=== PATIENT | female | born 1995 | race Caucasian/White ===

== ENCOUNTER 2017-01-24 15:53 | Emergency (ER) | payer OTHER ==
[2017-01-24 15:59] VITALS: BP 148/68
--- NOTE | 2017-01-24 17:11 | ER Document Report ---
HPI - HPI Onset: Other Onset/Duration: Gradual, Worse Quality of pain: Throbbing Severity: Moderate Pain Level: 3 Context: Patient states she has been having left foot pain which is increasing in intensity for the last 3 weeks. 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 The infection extended from a cut that she had on her left lower leg at that time. Patient currently has a small cut to the back of her left leg which she incurred while shaving. Denies known injury. Associated Symptoms: None Exacerbated by: Other - certain movements Relieved by: Remaining still Similar symptoms previously: Yes Recently seen / treated by doctor: No - ROS ROS below otherwise negative: Yes Systems Reviewed and Negative: Yes All other systems reviewed and negative - CONSTITUTIONAL Constitutional: DENIES: Fever - EENT EENT: DENIES: Congestion - NEURO Neurology: DENIES: Headache - CARDIOVASCULAR Cardiovascular: DENIES: Chest pain - RESPIRATORY Respiratory: DENIES: Trouble Breathing - GASTROINTESTINAL Gastrointestinal: DENIES: Abdominal Pain - MUSCULOSKELETAL Musculoskeletal: REPORTS: Extremity pain - Left foot - DERM Skin Color: Normal Past Medical History - General Information source: Patient - Social History Smoking Status: Never Smoker Frequency of alcohol use: None Drug Abuse: None Lives with: Spouse/Significant other Family History: Reviewed & Not Pertinent Neurological Medical History: Reports: Hx Migraine Past Surgical History: Reports: Hx Orthopedic Surgery Vertical Provider Document - CONSTITUTIONAL Agree With Documented VS: Yes Exam Limitations: No Limitations General Appearance: WD/WN, No Apparent Distress - INFECTION CONTROL TRAVEL OUTSIDE OF THE [place] IN LAST 30 DAYS: No - HEENT HEENT: Atraumatic, Normocephalic - RESPIRATORY Respiratory: Breath Sounds Normal, No Respiratory Distress O2 Sat by Pulse Oximetry: 98 - CARDIOVASCULAR Cardiovascular: Regular Rate, Regular Rhythm - MUSCULOSKELETAL/EXTREMETIES Musculoskeletal/Extremeties: MAEW, No Edema. negative: Eccymosis Notes: Pain reproduced to left foot between fourth and fifth toes with deep palpation. There is no warmth, no edema or swelling. Neurovascular and sensation is intact - NEURO Level of Consciousness: Awake, Alert, Appropriate - DERM Integumentary: Warm, Dry Notes: Patient does have a small scabbed cut to posterior left lower leg without signs and symptoms of infection noted. Course - Vital Signs Vital signs: Temp Pulse Resp BP Pulse Ox 99.4 F 98 H 20 148/68 H 98 01/24/17 15:57 01/24/17 15:57 01/24/17 15:57 01/24/17 15:57 01/24/17 15:57 - Laboratory Result Diagrams: 01/24/17 18:10 01/24/17 18:10 Discharge - Discharge Clinical Impression: Left foot pain Condition: Good Disposition: HOME, SELF-CARE Additional Instructions: ibuprofen as needed for pain wear more supportive shoes, not flip flops to see if helps alleviate pain follow up with your doctor if not better one week, all labs and xrays were normal today return as needed Prescriptions: Ibuprofen 600 mg PO PRN PRN #20 tablet PRN Reason:
--- NOTE | 2017-01-24 18:09 | RADIOLOGY REPORT (SQ) ---
EXAM DESCRIPTION: FOOT LEFT COMPLETE COMPLETED DATE/TIME: 01/24/2017 6:00 pm REASON FOR STUDY: pain SHIELD PT COMPARISON: None. NUMBER OF VIEWS: Three views. TECHNIQUE: AP, lateral and oblique radiographic images acquired of the left foot. LIMITATIONS: None. FINDINGS: MINERALIZATION: Normal. BONES: No acute fracture or dislocation. No worrisome bone lesions. JOINTS: No effusions. SOFT TISSUES: No soft tissue swelling. No foreign body. OTHER: No other significant finding. IMPRESSION: NEGATIVE STUDY OF THE LEFT FOOT. NO RADIOGRAPHIC EVIDENCE OF ACUTE INJURY. TECHNICAL DOCUMENTATION: JOB ID: [id number] [employer]- All Rights Reserved
[2017-01-24 18:25] LABS: ABSOLUTE BASOPHILS # (AUTO) 0.1 10^3/uL (0.0-0.2); ABSOLUTE EOSINOPHILS # (AUTO) 0.1 10^3/uL (0.0-0.6); ABSOLUTE MONOCYTES (AUTO) 0.4 10^3/uL (0.1-1.4); ABSOLUTE NEUT (AUTO) 5.1 10^3/uL (1.7-8.2); BASOPHILS % (AUTO) 0.8 % (0-2); EOSINOPHILS % (AUTO) 1.4 % (0-6); HEMOGLOBIN 14.1 g/dL (12.0-15.5); HGB HCT DIFFERENCE 2.3; LYMPHOCYTES % (AUTO) 25.9 % (13-45); MEAN CORPUSCULAR HEMOGLOBIN 30.7 pg (27.0-33.4); MEAN CORPUSCULAR HGB CONC 35.4 g/dL (32.0-36.0); MEAN CORPUSCULAR VOLUME 87 fl (80-97); MONOCYTES % (AUTO) 5.2 % (3-13); RED BLOOD COUNT 4.61 10^6/uL (3.72-5.28); RED CELL DISTRIBUTION WIDTH 12.6 % (11.5-14.0); SEGMENTED NEUTROPHILS % (AUTO) 66.7 % (42-78); WHITE BLOOD COUNT 7.6 10^3/uL (4.0-10.5)
[2017-01-24 18:42] LABS: ALANINE AMINOTRANSFERASE 32 U/L (5-35); ALBUMIN 4.7 g/dL (3.7-5.6); ALKALINE PHOSPHATASE 68 U/L (50-135); ANION GAP 12 (5-19); ASPARTATE AMINO TRANSFERASE 21 U/L (5-30); BILIRUBIN,DIRECT 0.4 mg/dL (0.0-0.4); BILIRUBIN,TOTAL 0.6 mg/dL (0.2-1.3); BLOOD UREA NITROGEN 11 mg/dL (7-20); CARBON DIOXIDE 23 mmol/L (22-30); CHLORIDE 107 mmol/L (98-107); GLUCOSE 85 mg/dL (75-110); POTASSIUM 4.1 mmol/L (3.6-5.0); SODIUM 142.2 mmol/L (137-145); TOTAL PROTEIN 7.3 g/dL (6.3-8.2)
== END 2017-01-24 19:15 | disposition home or self-care (01) ==
LOC: ER 15:53
DX: M79.672 Pain in left foot (principal); S81.812A Laceration without foreign body, left lower leg, initial encounter; Z86.14 Personal history of Methicillin resistant Staphylococcus aureus infection; X58.XXXA Exposure to other specified factors, initial encounter
CPT/HCPCS: 36415; 80053; 84702; 85025; 99283

== ENCOUNTER 2017-01-25 01:06 | Emergency (ER) | payer OTHER ==
[2017-01-25 01:28] VITALS: BP 125/81
[2017-01-25] MEDS ORDERED: DIPH/PERTUSS(ACELL)/TETANUS VAC/PF 0.5 ML SYR (>=10YO) IM ONE (02:24)
[2017-01-25] MEDS ORDERED: IBUPROFEN 600 MG TABLET PO ONE (02:24)
--- NOTE | 2017-01-25 02:26 | ER Document Report ---
ED General - General Chief Complaint: Laceration Stated Complaint: FINGER LACERATION Time Seen by Provider: 01/25/17 02:06 Notes: Patient is a 21-year-old female without past medical history, not up-to-date on her tetanus immunization who presents after sustaining a laceration to her left third digit. She states this occurred after she was trying to carve the eyes out of a stuffed bear that is approximately 6 feet tall that she was going to use as a Halloween costume. She was using a hunting knife to do so and unfortunately did graze across the top of the left middle finger. She did sustain a skin avulsion to the area. No additional injuries were sustained. She does note a mild, burning, constant pain to the area. Touching area worsens the pain. She has not tried anything to improve the pain. Bleeding was controlled with direct pressure. No history of similar injuries in the past. TRAVEL OUTSIDE OF THE [place] IN LAST 30 DAYS: No - Related Data Allergies/Adverse Reactions: Sulfa (Sulfonamide Antibiotics) Allergy (Verified 01/24/17 15:57) Past Medical History - General Information source: Patient - Social History Smoking Status: Never Smoker Frequency of alcohol use: None Drug Abuse: None Lives with: Family Family History: Reviewed & Not Pertinent Neurological Medical History: Reports: Hx Migraine Renal/ Medical History: Denies: Hx Peritoneal Dialysis Past Surgical History: Reports: Hx Orthopedic Surgery - Immunizations Hx Diphtheria, Pertussis, Tetanus Vaccination: Yes Review of Systems - Review of Systems Notes: Constitutional: Negative for fever. Eyes: Negative for visual changes. ENT: Negative for facial injury Cardiovascular: Negative for chest injury. Respiratory: Negative for shortness of breath. Gastrointestinal: Negative for abdominal injury. Genitourinary: Negative for genital injury Musculoskeletal: Negative for back injury. Skin: Positive for laceration/abrasions. Neurological: Negative for head injury. Physical Exam - Vital signs Vitals: Temp Pulse Resp BP Pulse Ox 98.7 F 93 H 18 125/81 100 01/25/17 01:25 01/25/17 01:25 01/25/17 01:25 01/25/17 01:25 01/25/17 01:25 Interpretation: Normal Notes: PHYSICAL EXAMINATION: GENERAL: Well-appearing, well-nourished and in no acute distress. HEAD: Atraumatic, normocephalic. EYES: sclera anicteric, conjunctiva are normal. ENT: Moist mucous membranes. NECK: Normal range of motion LUNGS: Normal work of breathing HEART: 2+ radial pulses bilaterally EXTREMITIES: no pitting or edema. No cyanosis. Full flexion extension of the DIP, MCP and PIP against resistance of the left third digit NEUROLOGICAL: No focal neurological deficits. Moves all extremities spontaneously and on command. PSYCH: Normal mood, normal affect. SKIN: Warm, Dry, normal turgor, there is a circular area of skin avulsion over the PIP of the left third digit with exposure of the underlying tendon. Course - Re-evaluation Re-evalutation: 01/25/17 02:24 Patient presents with a skin avulsion over the dorsal PIP of the left third digit with exposure of the underlying tendon. Patient has full flexion extension of the DIP, MCP and PIP against resistance. The wound was irrigated and dressed. There is no tissue to perform a repair. This will heal by secondary intention. No indication for antibiotic prophylaxis. Patient did have her tetanus updated here in the emergency department. At this time will discharge with return precautions and follow-up recommendations. Verbal discharge instructions given a the bedside and opportunity for questions given. Medication warnings reviewed. Patient is in agreement with this plan and has verbalized understanding of return precautions and the need for primary care follow-up in the next 24-72 hours. - Vital Signs Vital signs: Temp Pulse Resp BP Pulse Ox 98.7 F 93 H 18 125/81 100 01/25/17 01:25 01/25/17 01:25 01/25/17 01:25 01/25/17 01:25 01/25/17 01:25 Discharge - Discharge Clinical Impression: Laceration of left middle finger Qualifiers: Encounter type: initial encounter Damage to nail status: without damage Foreign body presence: without foreign body Qualified Code(s): S61.213A - Laceration without foreign body of left middle finger without damage to nail, initial encounter Condition: Good Disposition: HOME, SELF-CARE Additional Instructions: Return immediately if you develop spreading redness around the wound, pus from the wound, worsening pain, or a fever of >100.4. Keep the area clean and dry. Wash gently with soap and water twice daily and cover with antibiotic ointment.
== END 2017-01-25 03:00 | disposition home or self-care (01) ==
LOC: ER 01:06
DX: S61.213A Laceration without foreign body of left middle finger without damage to nail, initial encounter (principal); W26.0XXA Contact with knife, initial encounter; Y93.89 Activity, other specified; Z23 Encounter for immunization; Z88.2 Allergy status to sulfonamides
CPT/HCPCS: 90471; 90715; 99282

== ENCOUNTER 2018-05-16 15:01 | Emergency (ER) | payer OTHER ==
[2018-05-16 15:10] VITALS: BP 126/62
--- NOTE | 2018-05-16 15:18 | ER Document Report ---
ED Medical Screen (RME) - General Chief Complaint: Lower Abdominal Pain Stated Complaint: ABDOMINAL PAIN Time Seen by Provider: 05/16/18 15:12 Mode of Arrival: Ambulatory Information source: Patient Notes: 23-year-old female who is 17 weeks presents emergency department with a 6-day history of right upper and lower quadrant abdominal pain. Patient states that it feels like she is getting "punched a lot". She states that it has been constant over the last 6 days but has had intermittent fluctuations were became worse. No known exacerbating factors. No alleviating factors. Patient states that she took Tylenol yesterday without relief of symptoms. She denies any nausea, vomiting, diarrhea, constipation, dysuria, hematuria, vaginal bleeding, fever. Patient has been following up with her P[employer] MECH[employer]IC. She states this had blood work done last week. She is not been contacted about the results yet. I have greeted and performed a rapid initial assessment of this patient. A c omprehensive ED assessment and evaluation of the patient, analysis of test results and completion of the medical decision making process will be conducted by additional ED providers. PHYSICAL EXAMINATION: GENERAL: Well-appearing, well-nourished and in no acute distress. HEAD: Atraumatic, normocephalic. EYES: Pupils equal round extraocular movements intact, conjunctiva are normal. ENT: Nares patent NECK: Normal range of motion LUNGS: No respiratory distress Musculoskeletal: Normal range of motion NEUROLOGICAL: Normal speech, normal gait. TRAVEL OUTSIDE OF THE [place] IN LAST 30 DAYS: No - Related Data Allergies/Adverse Reactions: Sulfa (Sulfonamide Antibiotics) Allergy (Verified 05/16/18 15:11) Past Medical History Neurological Medical History: Reports: Hx Migraine Renal/ Medical History: Denies: Hx Peritoneal Dialysis Past Surgical History: Reports: Hx Orthopedic Surgery - Immunizations Hx Diphtheria, Pertussis, Tetanus Vaccination: Yes Physical Exam - Vital signs Vitals: Temp Pulse Resp BP Pulse Ox 99.1 F 80 16 126/62 H 98 05/16/18 15:05/16/18 15:05/16/18 15:05/16/18 15:05/16/18 15:09 Course - Vital Signs Vital signs: Temp Pulse Resp BP Pulse Ox 99.1 F 80 16 126/62 H 98 05/16/18 15:05/16/18 15:09 05/16/18 15:09 05/16/18 15:09 05/16/18 15:09
[2018-05-16 15:45] LABS: ABSOLUTE EOSINOPHILS # (AUTO) 0.1 10^3/uL (0.0-0.6); ABSOLUTE LYMPHOCYTES (AUTO) 1.9 10^3/uL (0.5-4.7); ABSOLUTE MONOCYTES (AUTO) 0.5 10^3/uL (0.1-1.4); BASOPHILS % (AUTO) 0.2 % (0-2); EOSINOPHILS % (AUTO) 0.8 % (0-6); HEMATOCRIT 38.5 % (36.0-47.0); HEMOGLOBIN 13.6 g/dL (12.0-15.5); LYMPHOCYTES % (AUTO) 16.3 % (13-45); MEAN CORPUSCULAR HEMOGLOBIN 32.1 pg (27.0-33.4); MEAN CORPUSCULAR HGB CONC 35.4 g/dL (32.0-36.0); MEAN CORPUSCULAR VOLUME 91 fl (80-97); PLATELET COUNT 193 10^3/uL (150-450); RED BLOOD COUNT 4.24 10^6/uL (3.72-5.28); RED CELL DISTRIBUTION WIDTH 12.3 % (11.5-14.0); SEGMENTED NEUTROPHILS % (AUTO) 78.7 % (42-78); TOTAL CELLS COUNTED % (AUTO) 100 %; WHITE BLOOD COUNT 11.5 10^3/uL (4.0-10.5)
[2018-05-16 15:48] LABS: APPEARANCE,URINE CLOUDY; BILIRUBIN,URINE NEGATIVE (NEGATIVE); COLOR,URINE AMBER; GLUCOSE, URINE NEGATIVE (NEGATIVE); KETONES,URINE 20 mg/dL (NEGATIVE); LEUKOCYTE ESTERASE,URINE TRACE (NEGATIVE); NITRITE,URINE NEGATIVE (NEGATIVE); PROTEIN,URINE NEGATIVE (NEGATIVE); URINE SPECIFIC GRAVITY 1.027; UROBILINOGEN,URINE NEGATIVE mg/dL (<2.0)
[2018-05-16 16:04] LABS: ALANINE AMINOTRANSFERASE 20 U/L (9-52); ALBUMIN 4.3 g/dL (3.5-5.0); ALKALINE PHOSPHATASE 58 U/L (38-126); ANION GAP 10 (5-19); ASPARTATE AMINO TRANSFERASE 15 U/L (14-36); BILIRUBIN,DIRECT 0.1 mg/dL (0.0-0.4); BILIRUBIN,TOTAL 0.5 mg/dL (0.2-1.3); BLOOD UREA NITROGEN 6 mg/dL (7-20); CALCIUM 9.7 mg/dL (8.4-10.2); CARBON DIOXIDE 23 mmol/L (22-30); CHLORIDE 105 mmol/L (98-107); GLUCOSE 111 mg/dL (75-110); POTASSIUM 3.9 mmol/L (3.6-5.0); SODIUM 138.2 mmol/L (137-145); TOTAL PROTEIN 6.7 g/dL (6.3-8.2)
[2018-05-16] MEDS ORDERED: NORMAL SALINE 1000 ML 1,000 ML IV ONE (16:26)
[2018-05-16] MEDS ORDERED: METOCLOPRAMIDE HCL INJ/PF 10 MG/2 ML SDV IV ONE (16:26)
--- NOTE | 2018-05-16 16:26 | ER Document Report ---
ED General - General Chief Complaint: Lower Abdominal Pain Stated Complaint: ABDOMINAL PAIN Time Seen by Provider: 05/16/18 15:12 Mode of Arrival: Ambulatory TRAVEL OUTSIDE OF THE [place] IN LAST 30 DAYS: No - HPI Patient complains to provider of: Abdominal pain, 17-week gestation, nausea and vomiting Onset: Other - 6 days ago Onset/Duration: Gradual, Worse Quality of pain: Cramping, Sharp Severity: Severe Context: Primigravida 17 weeks gestation Associated symptoms: Chills. denies: Fever Exacerbated by: Denies Relieved by: Denies Similar symptoms previously: No Recently seen / treated by doctor: Yes Notes: 23-year-old female coming in today with pelvic, right lower quadrant, right upper quadrant abdominal pain for almost a week. 6 days ago she saw her workers compensation claims examiner who pressed on her abdomen and ordered some lab work because she was complaining of pelvic and right upper quadrant and right lower quadrant pain. Apparently her OB ordered some lab work but did not order any other st udies. Nobody called the patient to touch base with her about the results of the labs. Patient continues to have the same symptoms and that is what brings her in today to be evaluated. - Related Data Allergies/Adverse Reactions: Sulfa (Sulfonamide Antibiotics) Allergy (Verified 05/16/18 15:11) Past Medical History - General Information source: Patient - Social History Smoking Status: Never Smoker Chew tobacco use (# tins/day): No Frequency of alcohol use: None Drug Abuse: None Family History: Reviewed & Not Pertinent Patient has suicidal ideation: No Patient has homicidal ideation: No Neurological Medical History: Reports: Hx Migraine Renal/ Medical History: Denies: Hx Peritoneal Dialysis Past Surgical History: Reports: Hx Orthopedic Surgery - Immunizations Hx Diphtheria, Pertussis, Tetanus Vaccination: Yes Review of Systems - Review of Systems Notes: Constitutional: No fevers, but chills. EENT: Atraumatic Cardiovascular: No chest pain. No palpitations. Respiratory: No cough. No shortness of breath. No respiratory distress. Gastrointestinal: No nausea, vomiting, or diarrhea. Tenderness in the right upper quadrant and right lower quadrant Genitourinary: Atraumatic. No lesions. No pain. No discharge. No vaginal bleeding. Positive for pelvic pain Musculoskeletal: Atraumatic. No swelling. No deformities. Skin: No rash or lesions. Lymphatic: No swollen lymph nodes. Neurologic: No headache. No syncope. Psychiatric: No suicidal or homicidal ideation. Physical Exam - Vital signs Vitals: Temp Pulse Resp BP Pulse Ox 99.1 F 80 16 126/62 H 98 05/16/18 15:09 05/16/18 15:09 05/16/18 15:09 05/16/18 15:09 05/16/18 15:09 - Notes Notes: General: Well-developed, well-nourished. In no acute distress. Non-toxic appearing. Cardiac: Well-perfused. Regular rate and rhythm. No murmurs, rubs, or gallops. Pulmonary: No respiratory distress. No cyanosis. Bilateral lung fiels are clear to auscultation. Abdominal: Non-distended. Non-rigid. Bowel sounds are present in all 4 quadrants. There is guarding and no rebound when palpating the right upper and right lower quadrants. There is diffuse tenderness to palpation across the lower abdomen. HEENT: Head is atraumatic. Conjunctivae not reddened. No tearing. PERRL. EOMI. Orbits atraumatic. No periorbital swelling or erythema. Oropharynx is without erythema, swelling, or exudates. Neck: Supple. No adenopathy. No meningismus. Dermatologic: Warm with good turgor. No rash. Atraumatic. Chest: Atraumatic. No chest wall tenderness to palpation. Musculoskeletal: Moves all extremities well. No range of motion deficits. no muscular or joint tenderness. No paraspinal muscle tenderness. no midline spinal tenderness or step-off. Genitourinary: Examination deferred Neurologic: No gross neurologic deficits. Psychiatric: Normal mood. Course - Re-evaluation Re-evalutation: 05/16/18 16:25 Differential diagnosis is pretty vast. Patient does appear to have quite tender abdomen in the right upper and right lower quadrants. We will get labs and ultrasounds of all areas of concern and see where to go from there. 05/16/18 19:50 Patient's workup is complete. Ultrasounds of the gallbladder appendix and OB assessment were all negative. Patient continues to have some discomfort and vomiting. She admits that she has had vomiting similar to this throughout her . Her urinalysis is positive for UTI. Because of her and right lower quadrant tenderness, I had the general surgeon come and assess her abdomen. Although the patient's history was not a typical appendix presentation, he suggested that we do the MRI scan to absolutely definitively rule out appendicitis. After getting the MRI team to stay around the patient finally decided she did not want to stick around to have the procedure done. I told her that I could not definitively rule out appendicitis without it and therefore she would need to leave AGAINST MEDICAL ADVICE. She is awake alert and oriented. Toyin Coma Scale 15 out of 15. Able to make the decision to leave AGAINST MEDICAL ADVICE. Appropriate paperwork was signed. I will write a prescription for antibiotics for UTI. If she is worse she knows that she is welcome to return to the ED for further evaluation. Hopefully, she will be able to secure prompt 24-48-hour follow-up with her workers compensation claims examiner. - Vital Signs Vital signs: Temp Pulse Resp BP Pulse Ox 99.1 F 80 16 126/62 H 98 05/16/18 15:09 05/16/18 15:09 05/16/18 15:09 05/16/18 15:09 05/16/18 15:09 - Laboratory Result Diagrams: 05/16/18 15:22 05/16/18 15:22 Laboratory results interpreted by me: 05/16/18 05/16/18 05/16/18 15:22 15:22 15:22 WBC 11.5 H Seg Neutrophils % 78.7 H Absolute Neutrophils 9.0 H BUN 6 L Creatinine 0.44 L Glucose 111 H Urine Ketones 20 H Ur Leukocyte Esterase TRACE H - Diagnostic Test Radiology reviewed: Reports reviewed Discharge - Discharge Clinical Impression: Abdominal pain affecting , Nausea and vomiting during , Left against medical advice Disposition: AGAINST MEDICAL ADVICE Instructions: Abdominal Pain ([facility]), Recurring Abdominal Pain, Child ([facility]), Vomiting ([facility]), Intravenous (IV) Fluids ([facility]) Prescriptions: Metoclopramide HCl [Reglan 10 mg Tablet] 1 tab PO Q6HP PRN #20 tablet PRN Reason: Cephalexin Monohydrate [Keflex 500 mg Capsule] 500 mg PO Q6H 10 Days #40 capsule Referrals: OB,YOUR [Other] - Follow up tomorrow
[2018-05-16] MEDS ORDERED: MORPHINE SULFATE 10 MG/ML INJ IV ONE (16:27)
--- NOTE | 2018-05-16 18:01 | RADIOLOGY REPORT (SQ) ---
EXAM DESCRIPTION: U/S ABDOMEN LIMITED W/O DOP COMPLETED DATE/TIME: 05/16/2018 5:31 pm REASON FOR STUDY: right lower quad pain in COMPARISON: None. TECHNIQUE: Static and real time farmer scale imaging performed of the right lower quadrant with additi onal compression maneuvers. LIMITATIONS: None. FINDINGS: APPENDIX: Not visualized. BOWEL: Active peristalsis with fluid in the bowel. COMPRESSION MANEUVERS: No rebound pain with compression. OTHER: No other significant finding. IMPRESSION: APPENDIX NOT IDENTIFIED. ACTIVE PERISTALSIS. TECHNICAL DOCUMENTATION: JOB ID: [id number] 2010 [employer]- All Rights Reserved Reading location - IP/workstation name: [email or web address]
--- NOTE | 2018-05-16 18:08 | RADIOLOGY REPORT (SQ) ---
EXAM DESCRIPTION: U/S ABDOMEN LIMITED W/O DOP COMPLETED DATE/TIME: 05/16/2018 5:30 pm REASON FOR STUDY: ruq tenderness in patient COMPARISON: None. TECHNIQUE: Dynamic and static grayscale images acquired of the abdomen and recorded on PACS. Additio nal selected color Doppler and spectral images recorded. LIMITATIONS: None. FINDINGS: PANCREAS: Normal. LIVER: The liver measures 12.4 cm demonstrating normal echogenicity. LIVER VASCULATURE: Normal directional flow of the main portal vein and hepatic veins. GALLBLADDER: The gallbladder is normal. The gallbladder wall measures 1.3 mm. . ULTRASOUND-DETECTED LOREDO'S SIGN: Negative. INTRAHEPATIC DUCTS AND COMMON DUCT: CBD is normal measuring 4.5 mm. Intrahepatic ducts normal calibe r. No filling defects. INFERIOR VENA CAVA: Normal flow. AORTA: The upper abdominal aorta measures 1.4 cm in AP diameter. The mid abdominal aorta measures 1 .1 cm in AP diameter and distally 0.9 cm. RIGHT KIDNEY: Right kidney is normal in size measuring 10.4 cm. There is no evidence of hydronephro sis. Normal Doppler flow. IMPRESSION: NORMAL RIGHT UPPER QUADRANT ULTRASOUND. TECHNICAL DOCUMENTATION: JOB ID: [id number] 2010 [employer]- All Rights Reserved Reading location - IP/workstation name: [email or web address]
--- NOTE | 2018-05-16 18:23 | RADIOLOGY REPORT (SQ) ---
EXAM DESCRIPTION: U/S OB 14+ TA/1 GEST W/DOPPLER COMPLETED DATE/TIME: 05/16/2018 5:36 pm REASON FOR STUDY: severe pelvic pain in COMPARISON: None. TECHNIQUE: Static and Dynamic grayscale imaging performed of gravid uterus using transabdominal appr oach. Additional selected color Doppler and spectral images recorded. All stored on PACS. LIMITATIONS: None. FINDINGS: FETUSES SEEN:1 EGA: 18 weeks 3 days Calculated using BPD,FL,HC,AC documented on images. EGA by dates 18 weeks 2 day s. BPD: 4.1 consistent with gestational age 18 weeks 3 days. HC: 15.4 consistent with gestational age 18 weeks 2 days. AC: 12.7 consistent with gestational age 18 weeks 2 days. FL: 2.75 consiste nt with gestational age 18 weeks 3 days. BURKE: 10/04/2018. EFW: 235 g +/-35 g grams MVP: 3.6 PLACENTA: Anterior. Small placental Sandoval measuring 2.3 x 0.9 x 1.7 cm. PRESENTATION: Vertex ANATOMY: HEART RATE: 153 beats per minute. FOUR CHAMBER HEART: Visualized. THREE VESSEL CORD: Yes. CORD INSERTION: Visualized. KIDNEYS AND BLADDER: Visualized. Appear normal. STOMACH: Visualized. Appears normal. SPINE: Normal as visualized. BRAIN AND LATERAL VENTRICLES: Visualized. Appear normal. OTHER: No other significant finding. MATERNAL ADNEXA: Right ovary nonvisualized. Left ovary measures 2.5 x 1.1 x 2.2 cm. CERVICAL LENGTH: 2.4 Closed. IMPRESSION: LIVING INTRAUTERINE . ESTIMATED GESTATIONAL AGE 18 weeks 3 days NO VISUALIZED ANOMALIES. Trimester of : Second trimester - 13 weeks 1 day to 27 weeks 6 days. TECHNICAL DOCUMENTATION: JOB ID: [id number] SC-[id number] 2010 [employer]- All Rights Reserved Reading location - IP/workstation name: [email or web address]
== END 2018-05-16 20:00 | disposition left against medical advice (07) ==
LOC: ER 15:01
DX: O23.42 Unspecified infection of urinary tract in pregnancy, second trimester (principal); O21.9 Vomiting of pregnancy, unspecified; O26.892 Other specified pregnancy related conditions, second trimester; R10.2 Pelvic and perineal pain; R10.11 Right upper quadrant pain; R10.31 Right lower quadrant pain; R10.813 Right lower quadrant abdominal tenderness; R68.83 Chills (without fever); Z3A.17 17 weeks gestation of pregnancy; Z88.2 Allergy status to sulfonamides; Z53.20 Procedure and treatment not carried out because of patient's decision for unspecified reasons
CPT/HCPCS: 99284; 96361; 96374; 96375; 36415; 87086; 83690; 85025; 80053; 81001; 76805; 76705; 93976; J2765; J2270; J7030